=== PATIENT | female | born 1965 | race Caucasian/White ===

== ENCOUNTER 2017-05-12 11:40 | Emergency (ER) | payer MEDICAID ==
--- NOTE | 2017-05-12 11:46 | EDPHY ---
H & P Time Seen by Provider: 05/12/17 11:43 HPI/ROS: CHIEF COMPLAINT: Abdominal pain HISTORY OF PRESENT ILLNESS: This patient is a wheelchair-bound 52-year-old female who presents to the Emergency Department complaining of acute onset abdominal pain with associated vomiting beginning yesterday morning. She describes her pain as cramping localized to her lower abdomen, waxing and waning over time up to severity 10/10. She has vomited every time she has attempted to eat or drink since the onset of her pain and reports radiating burning pain to her esophagus following each vomiting episode. She denies diarrhea, fever or chills, or any additional complaints. The patient reports increased alcohol consumption over the past month and admits to drinking multiple beers and 3+ shots daily. She denies alcohol use today or yesterday. Medical history includes cerebellar ataxia of unclear origin. REVIEW OF SYSTEMS: Constitutional: No fever, no chills Eyes: No visual changes ENT: No sore throat Respiratory: No cough, no shortness of breath Cardiac: No chest pain Gastrointestinal: As in HPI Genitourinary: No hematuria, no dysuria Musculoskeletal: No leg pain or swelling Skin: No rash Neurological: No headache, no numbness, no weakness Psychiatric: No depression Past Medical/Surgical History: Cerebellar ataxia, wheelchair bound. Social History: Smokes marijuana regularly. Increased alcohol consumption over the past month; approximately 3 shots and multiple beers daily. Daughter at bedside. Smoking Status: Current some day smoker Physical Exam: General Appearance: Alert, nontoxic Eyes: Pupils equal and round, no conjunctival pallor or injection ENT, Mouth: Mucous membranes moist Neck: Normal inspection Respiratory: Lungs are clear to auscultation Cardiovascular: Regular rate and rhythm Gastrointestinal: Abdomen is soft with epigastric tenderness and minimal RUQ tenderness Neurological: A&O, nonfocal Skin: Warm and dry, no rash Extremities: Nontender, no pedal edema Psychiatric: Mood and affect normal Constitutional: Initial Vital Signs Temperature (C) 37.1 C 05/12/17 11:44 Heart Rate 110 H 05/12/17 11:44 Respiratory Rate 20 05/12/17 11:44 Blood Pressure 111/88 H 05/12/17 11:44 O2 Sat (%) 97 05/12/17 11:44 O2 Delivery Mode Room Air Allergies/Adverse Reactions: No Known Allergies Allergy (Verified 05/12/17 11:43) Home Medications: Medication Instructions Recorded NO HOME MEDICATIONS 02/08/11 Ondansetron Odt [Zofran Odt 4 mg 4 mg PO Q4 PRN #6 tab 05/12/17 (*)] Pantoprazole Sodium [Protonix 40mg 40 mg PO DAILY #20 tab 05/12/17 (*)] Medical Decision Making ED Course/Re-evaluation: 52-year-old female with history of chronic alcohol abuse, worse over the past month, presents with complaint of abdominal pain and vomiting beginning acutely yesterday. At time of arrival, she is tachycardic at 110. She has epigastric tenderness more significant than RUQ tenderness on exam. Will proceed with labs including lipase and LFTs. IV established. 1L IV NS, 4mg IV Zofran, 40mg IV Protonix, and PO GI Cocktail administered. Labs reviewed and are unremarkable. Abd exam improved: mild epig tenderness. Clinical presentation c/w acute gastritis, likely secondary to EtOH. On reevaluation, the patient is feeling much better. Her nausea and abdominal pain have completely resolved. She will complete a PO challenge. Abd exam remains benign. I discussed impression of gastritis with the patient and recommendation for treatment at home using Zofran and Protonix. She is agreeable to this. She is given gastroenterology follow-up and discharged home in good condition. Differential Diagnosis: Differential diagnosis includes though it is not limited to appendicitis, cholecystitis, diverticulitis, pyelonephritis, bowel perforation, small bowel obstruction. - Data Points Laboratory Results: Laboratory Results 05/12/17 11:55 05/12/17 11:55 Medications Given: Discontinued Medications Al Hydroxide/Mg Hydroxide (Maalox Susp) 30 ml PO ONCE ONE Stop: 05/12/17 13:35 Last Admin: 05/12/17 13:43 Dose: 30 ml Hyoscyamine Sulfate (Levsin, Hyomax-Sl) 0.25 mg PO ONCE ONE Stop: 05/12/17 13:35 Last Admin: 05/12/17 13:43 Dose: 0.25 mg Sodium Chloride (Ns) 1,000 mls @ 0 mls/hr IV ONCE ONE; Wide Open PRN Reason: Protocol Stop: 05/12/17 12:07 Last Admin: 05/12/17 12:16 Dose: 1,000 mls Pantoprazole Sodium 40 mg/ (Sodium Chloride) 100 mls @ 200 mls/hr IV EDNOW ONE Stop: 05/12/17 12:36 Last Admin: 05/12/17 12:15 Dose: 100 mls Sodium Chloride (Ns) 1,000 mls @ 0 mls/hr IV ONCE ONE; Wide Open PRN Reason: Protocol Stop: 05/12/17 12:48 Last Admin: 05/12/17 12:50 Dose: 1,000 mls Lidocaine (Lidocaine 2% Viscous) 15 ml PO ONCE ONE Stop: 05/12/17 13:35 Last Admin: 05/12/17 13:43 Dose: 15 ml Ondansetron HCl (Zofran) 4 mg IVP EDNOW ONE Stop: 05/12/17 12:07 Last Admin: 05/12/17 12:15 Dose: 4 mg Departure - Departure Disposition: Home, Routine, Self-Care Clinical Impression: Gastritis Qualifiers: Gastritis type: alcoholic Chronicity: acute Gastritis bleeding: without bleeding Qualified Code(s): K29.20 - Alcoholic gastritis without bleeding Condition: Good Instructions: Gastritis (ED) Additional Instructions: 1. Take 4mg Zofran as prescribed every 4-6 hours as needed for nausea and vomiting. 2. Take 40mg Protonix daily as prescribed to treat and prevent your abdominal pain and nausea. 3. Follow-up with a engagement mgr if you would like for recurrence of your symptoms. 4. Return to the Emergency Department with severe abdominal pain, uncontrollable vomiting, blood in vomit or stool, high fever, or other serious concerns. Referrals: Konrad Villalobos MD [Medical Doctor] - As per Instructions Prescriptions: Ondansetron Odt [Zofran Odt 4 mg (*)] 4 mg PO Q4 PRN #6 tab PRN Reason: Nausea Pantoprazole Sodium [Protonix 40mg (*)] 40 mg PO DAILY #20 tab Report Scribed for: Grace Rascon Report Scribed by: Radha Samson Date of Report: 05/12/17 Time of Report: 11:46 Physician Review and Approval Statement: 05/12/17 11:46 Portions of this note were transcribed by a certified medical assistant. I personally performed a history, physical exam, medical decision making, and confirmed accuracy of information the transcribed note.
[2017-05-12] MEDS ORDERED: NS 1,000 ML IV ONE ×2 (12:06→12:47)
[2017-05-12] MEDS ORDERED: ONDANSETRON 4 MG/2 ML VIAL IVP ONE (12:06)
[2017-05-12] MEDS ORDERED: PANTOPRAZOLE SODIUM 40 MG in NS 100 ML IV ONE (12:07)
[2017-05-12 12:10] LABS: % IMMATURE GRANULYOCYTES 0.5 % (0.0-1.1); ABSOLUTE IMMATURE GRANULOCYTES 0.07 10^3/uL (0.00-0.10); ABSOLUTE NRBC COUNT 0.05 10^3/uL (0-0.01); ADD DIFF? NO; ADD MORPH? NO; ADD SCAN? NO; ATYPICAL LYMPHOCYTE FLAG 0 (0-99); FRAGMENT RBC FLAG 0 (0-99); HEMATOCRIT 46.4 % (38.0-47.0); HEMOGLOBIN 16.6 g/dL (12.6-16.3); LEFT SHIFT FLG 10 (0-99); LIPEMIA HEMOLYSIS FLAG 90 (0-99); MEAN CELL HEMOGLOBIN 34.4 pg (27.9-34.1); MEAN CELL HEMOGLOBIN CONCENTR. 35.8 g/dL (32.4-36.7); MEAN CELL VOLUME 96.1 fL (81.5-99.8); MEAN PLATELET VOLUME 9.9 fL (8.7-11.7); NRBC-AUTO% 0.3 % (0.0-0.2); PLATELET CLUMPS FLAG 0 (0-99); PLATELET COUNT 241 10^3/uL (150-400); RED BLOOD CELL COUNT 4.83 10^6/uL (4.18-5.33)
[2017-05-12 12:18] LABS: ALANINE AMINOTRANSFERASE 51 IU/L (9-52); ALBUMIN 5.2 g/dL (3.5-5.0); ALKALINE PHOSPHATASE 77 IU/L (38-126); ANION GAP 19 mEq/L (8-16); ASPARTATE AMINOTRANSFERASE 64 IU/L (14-46); BILIRUBIN,TOTAL 1.6 mg/dL (0.1-1.4); BILIRUBIN-CONJUGATED 0.5 mg/dL (0.0-0.5); BILIRUBIN-UNCONJUGATED 1.1 mg/dL (0.0-1.1); CALCIUM 11.3 mg/dL (8.5-10.4); CARBON DIOXIDE 21 mEq/l (22-31); CHLORIDE 95 mEq/L (97-110); CREATININE 0.7 mg/dL (0.6-1.0); GLOMERULAR FILTRATION RATE > 60; GLUCOSE 111 mg/dL (70-100); POTASSIUM 4.8 mEq/L (3.5-5.2); SODIUM 135 mEq/L (134-144); TOTAL PROTEIN 9.2 g/dL (6.3-8.2)
[2017-05-12] MEDS ORDERED: MAG HYDROX/AL HYDROX/SIMETH 30 ML UDCUP PO ONE (13:34)
[2017-05-12] MEDS ORDERED: HYOSCYAMINE SULFATE 0.125 MG TAB PO ONE (13:34)
[2017-05-12] MEDS ORDERED: LIDOCAINE 2% VISCOUS 15 ML UDCUP PO ONE (13:34)
[2017-05-12 13:44] VITALS: TEMP 98.2; O2SAT 96
[2017-05-12 14:29] VITALS: BP 104/76; PULSE 76; RESP 16
== END 2017-05-12 14:46 | disposition home or self-care (01) ==
DX: K29.20 Alcoholic gastritis without bleeding (principal); F17.200 Nicotine dependence, unspecified, uncomplicated
CPT/HCPCS: 96365; J2405

== ENCOUNTER 2018-01-30 15:54 | Emergency (ER) | payer MEDICAID ==
[2018-01-30] MEDS ORDERED: HALOPERIDOL LACT 5 MG/ML INJ IVP ONE (16:00)
--- NOTE | 2018-01-30 16:03 | EDPHY ---
H & P Time Seen by Provider: 01/30/18 16:01 HPI/ROS: CHIEF COMPLAINT: Nausea, vomiting HISTORY OF PRESENT ILLNESS: Patient is a 52-year-old alcoholic female who also smokes cannabis daily who comes by EMS for nausea and vomiting. She states that she had been sober for 7 months but then went on a binge yesterday. She stopped drinking at 4:00 p.m.. She is not tremulous or tachycardic. She states she has never had withdrawals before. She denies abdominal pain. No fever. No diarrhea. She has dry heaving. She was given 6.5 of promethazine by EMS and has not vomited since. She also admits to smoking marijuana today and taking Percocet. REVIEW OF SYSTEMS: Constitutional: denies: chills, fever, recent illness, recent injury EENTM: denies: blurred vision, double vision, nose congestion Respiratory: denies: cough, shortness of breath Cardiac: denies: chest pain, irregular heart rate, lightheadedness, palpitations Gastrointestinal/Abdominal: See HPI denies: abdominal pain, diarrhea, blood streaked stools Genitourinary: denies: dysuria, frequency, hematuria, pain Musculoskeletal: denies: joint pain, muscle pain Skin: denies: lesions, rash, jaundice, bruising Neurological: denies: headache, numbness, paresthesia, tingling, dizziness, weakness Hematologic/Lymphatic: denies: blood clots, easy bleeding, easy bruising Immunologic/allergic: denies: HIV/AIDS, transplant EXAM: GENERAL: Well-appearing, well-nourished and in no acute distress. HEAD: Atraumatic, normocephalic. EYES: Pupils equal round and reactive to light, extraocular movements intact, sclera anicteric, conjunctiva are normal. ENT: TMs normal, nares patent, oropharynx clear without exudates. Moist mucous membranes. NECK: Normal range of motion, supple without lymphadenopathy or JVD. LUNGS: Breath sounds clear to auscultation bilaterally and equal. No wheezes rales or rhonchi. HEART: Regular rate and rhythm without murmurs, rubs or gallops. ABDOMEN: Soft, nontender, normoactive bowel sounds. No guarding, no rebound. No masses appreciated. BACK: No CVA tenderness, no spinal tenderness, step-offs or deformities EXTREMITIES: Normal range of motion, no pitting or edema. No clubbing or cyanosis. NEUROLOGICAL: Cranial nerves II through XII grossly intact. Normal speech, normal gait. 5/5 strength, normal movement in all extremities, normal sensation PSYCH: Normal mood, normal affect. SKIN: Warm, dry, normal turgor, no visible rashes or lesions. Source: Patient Exam Limitations: No limitations - Medical/Surgical History Hx Asthma: No Hx Chronic Respiratory Disease: No Hx Diabetes: No Hx Cardiac Disease: No Hx Renal Disease: No Hx Cirrhosis: No Hx Alcoholism: Yes Hx HIV/AIDS: No Hx Splenectomy or Spleen Trauma: No Other PMH: Alcoholism, wheelchair bound, finger surgery, marijuana use. - Family History Significant Family History: No pertinent family hx - Social History Smoking Status: Current some day smoker Alcohol Use: Occasionally Drug Use: Marijuana, Other Constitutional: Initial Vital Signs Temperature (C) 36.3 C 01/30/18 16:05 Heart Rate 49 L 01/30/18 16:05 Respiratory Rate 16 01/30/18 16:05 Blood Pressure 97/50 L 01/30/18 16:05 O2 Sat (%) 91 L 01/30/18 16:05 O2 Delivery Mode Room Air Allergies/Adverse Reactions: No Known Allergies Allergy (Verified 05/12/17 11:43) Home Medications: Medication Instructions Recorded NO HOME MEDICATIONS 02/08/11 Ondansetron Odt [Zofran Odt 4 mg 4 mg PO Q4 PRN #6 tab 05/12/17 (*)] Pantoprazole Sodium [Protonix 40mg 40 mg PO DAILY #20 tab 05/12/17 (*)] Medical Decision Making ED Course/Re-evaluation: 10:00 p.m. the patient is doing much better. She is awake and sober. She states that she feels well and is eager to go home. She was wheelchair-bound at baseline. Will call an ambulance to take her home. Differential Diagnosis: Partial list of the Differential diagnosis considered include but were not limited to; intoxication, withdrawal, cannabis hyperemesis, dehydration and although unlikely based on the history and physical exam, I also considered infection, seizure. I discussed these differential diagnoses and the plan with the patient as well as the usual and expected course. The patient understands that the diagnosis is provisional and that in medicine we are not always correct and that further workup is often warranted. Usual and customary warnings were given. All of the patient's questions were answered. The patient was instructed to return to the emergency department should the symptoms at all worsen or return, otherwise to followup with the physician as we discussed. - Data Points Medications Given: Discontinued Medications Haloperidol Lactate (Haldol Injection) 2.5 mg IVP EDNOW ONE Stop: 01/30/18 16:01 Last Admin: 01/30/18 16:05 Dose: 2.5 mg Departure - Departure Disposition: Home, Routine, Self-Care Clinical Impression: Dehydration, Alcohol abuse Vomiting Qualifiers: Vomiting type: unspecified Vomiting Intractability: non-intractable Nausea presence: with nausea Qualified Code(s): R11.2 - Nausea with vomiting, unspecified Condition: Good Instructions: Acute Nausea and Vomiting in Children (ED), Abuse of Alcohol (ED) Referrals: Patient,NotPresent [Unknown] - As per Instructions
[2018-01-31 05:03] VITALS: RESP 16
[2018-01-31 05:04] VITALS: BP 106/78; PULSE 74; TEMP 98.6; O2SAT 95
== END 2018-01-31 | disposition home or self-care (01) ==
LOC: EDUNIT#
DX: E86.0 Dehydration (principal); F10.10 Alcohol abuse, uncomplicated; F17.200 Nicotine dependence, unspecified, uncomplicated
CPT/HCPCS: 96374; J1630